=== PATIENT | female | born 1985 | race Caucasian/White ===

== ENCOUNTER 2018-05-16 16:10 | Emergency (ER) | payer MEDICAID ==
[2018-05-16 17:26] LABS: ADD UMIC NO; UR ASCORBIC ACID NEGATIVE (NEGATIVE); UR BILIRUBIN (Dip) NEGATIVE (NEGATIVE); UR BLOOD (Dip) NEGATIVE (NEGATIVE); UR CLARITY SLIGHTLY CLOUDY (CLEAR); UR COLOR YELLOW (YELLOW); UR GLUCOSE (Dip) NEGATIVE (NEGATIVE); UR KETONES (Dip) NEGATIVE (NEGATIVE); UR LEUKOCYTE ESTERASE (Dip) NEGATIVE Leu/ul (NEGATIVE); UR NITRITE (Dip) NEGATIVE (NEGATIVE); UR RBC 1 /HPF (0-5); UR SPECIFIC GRAVITY (Dip) 1.006 (1.003-1.030); UR SQUAMOUS EPITHELIAL CELL MODERATE /HPF (FEW); UR TOTAL PROTEIN (Dip) NEGATIVE (NEGATIVE); UR UROBILINOGEN (Dip) NEGATIVE (NEGATIVE); UR WBC 2 /HPF (0-5)
== END 2018-05-16 18:07 | disposition home or self-care (01) ==
LOC: FTE 16:10
DX: O26.891 Other specified pregnancy related conditions, first trimester (principal); R10.2 Pelvic and perineal pain; Z3A.12 12 weeks gestation of pregnancy
CPT/HCPCS: 76801; 81001; 81003; 87591; 99284-25

== ENCOUNTER 2018-11-26 05:30 | Inpatient (IN) | payer MEDICAID ==
[2018-11-26] MEDS ORDERED: OXYTOCIN 30 UNITS/LR 500 ML IV ×2 (06:00→09:30)
[2018-11-26] MEDS ORDERED: METHYLERGONOVINE 0.2 MG INJ IM ×2 (06:00→09:30)
[2018-11-26] MEDS ORDERED: CEFAZOLIN 2 GM/50 ML (PMX) 50 ML IVPB (06:00)
[2018-11-26] MEDS ORDERED: CARBOPROST 250 MCG INJ IM ×2 (06:00→09:30)
[2018-11-26] MEDS ORDERED: MISOPROSTOL 200 MCG TAB PR ×2 (06:00→09:30)
[2018-11-26] MEDS: LACTATED RINGER'S 1,000 ML IV ×3 (06:29→22:14)
[2018-11-26] MEDS ORDERED: OXYTOCIN 30 UNITS/LR 500 ML BAG IV (07:00)
[2018-11-26] MEDS ORDERED: EPHEDrine SULFATE 50 MG/5 ML SYG (07:00)
[2018-11-26 07:01] LABS: ADD MAN DIFF? NO
[2018-11-26 07:02] LABS: BASOPHILS % 0.4 % (0.0-2.0); EOSINOPHILS # 0.2 10^3/ul (0.0-0.5); EOSINOPHILS % 2.3 % (0.0-7.0); HEMATOCRIT 35.4 % (37.0-47.0); LYMPHOCYTES # 1.7 10^3/ul (0.8-2.9); MEAN CORPUSCULAR HEMOGLOBIN 31.3 pg (29.0-33.0); MEAN CORPUSCULAR HGB CONC 33.9 g/dl (32.0-37.0); MEAN CORPUSCULAR VOLUME 92.4 fl (82.0-101.0); MEAN PLATELET VOLUME 11.7 fl (7.4-10.4); MONOCYTE # 0.6 10^3/ul (0.3-0.9); MONOCYTES % 7.4 % (0.0-11.0); NEUTROPHIL # 5.5 10^3/ul (1.6-7.5); NEUTROPHILS % 68.3 % (39.0-77.0); PLATELET COUNT 229 10^3/UL (140-415); RED BLOOD COUNT 3.83 10^6/ul (4.20-5.40); RED CELL DISTRIBUTION WIDTH 12.6 % (11.5-14.5)
[2018-11-26 07:22] LABS: INR 0.85; PROTIME 11.7 Sec (11.9-14.9); PT RATIO 0.9
[2018-11-26 07:23] LABS: PARTIAL THROMBOPLASTIN TIME 23.6 Sec (23.0-35.0)
[2018-11-26 07:56] LABS: HEPATITIS B SURFACE ANTIGEN NEGATIVE (NEGATIVE)
[2018-11-26] MEDS ORDERED: HYDROmorphONE 0.5 MG/0.5 ML SYG IV ×2 (08:30)
[2018-11-26] MEDS ORDERED: NALOXONE (0.4 MG/ML) INJ IV (08:30)
[2018-11-26] MEDS ORDERED: DIPHENHYDRAMINE 50 MG INJ IV (08:30)
[2018-11-26] MEDS ORDERED: KETOROLAC 30 MG INJ IV (08:30)
[2018-11-26] MEDS ORDERED: FENTAnyl 50 MCG/ML VIAL IV ×2 (08:30)
[2018-11-26] MEDS ORDERED: ONDANSETRON 4 MG INJ IV (08:30)
[2018-11-26] MEDS ORDERED: METOCLOPRAMIDE 10 MG INJ IV (08:30)
[2018-11-26] MEDS ORDERED: HYDROmorphONE 1 MG/5 ML IV SYRINGE IV ×3 (08:30)
[2018-11-26] MEDS ORDERED: morphine SULFATE/PF (10 MG/10 ML) INJ (08:46)
[2018-11-26] MEDS: OXYTOCIN 30 UNITS/LR 500 ML IV ×2 (09:03→10:33)
[2018-11-26] MEDS ORDERED: DEXTROSE 5%-LR 1,000 ML IV (09:03)
[2018-11-26] MEDS ORDERED: PHENYLephrine (100 MCG/ML) 10ML SYG (09:04)
[2018-11-26] MEDS ORDERED: METHYLERGONOVINE 0.2 MG TAB PO (09:30)
[2018-11-26] MEDS ORDERED: LANOLIN HPA 1 PKT TOP (09:30)
[2018-11-26] MEDS: ONDANSETRON 4 MG INJ IV (11:58)
[2018-11-26] MEDS: DIPHTH/TET/ACEL PERTUSS (ADULT) 0.5 ML VIAL IM* (13:08)
[2018-11-26] MEDS: KETOROLAC 30 MG INJ IV (13:26)
[2018-11-26] MEDS ORDERED: IBUPROFEN 800 MG TAB PO (14:00)
[2018-11-26 15:22] LABS: RAPID PLASMA REAGIN NONREACTIVE (NR)
[2018-11-26] MEDS: GUAIFENESIN 20 MG/ML 5ML CUP PO (17:01)
[2018-11-26] MEDS: SENNA/DOCUSATE NA (8.6MG/50MG) TAB PO (21:00)
[2018-11-27] MEDS: LACTATED RINGER'S 1,000 ML IV (05:50)
[2018-11-27 07:15] LABS: ADD MAN DIFF? NO
[2018-11-27 07:21] LABS: WHITE BLOOD COUNT 7.4 10^3/ul (4.8-10.8)
[2018-11-27 07:22] LABS: BASOPHILS % 0.4 % (0.0-2.0); EOSINOPHILS # 0.1 10^3/ul (0.0-0.5); EOSINOPHILS % 1.3 % (0.0-7.0); HEMATOCRIT 29.2 % (37.0-47.0); HEMOGLOBIN 9.9 g/dl (12.0-16.0); LYMPHOCYTES # 1.5 10^3/ul (0.8-2.9); LYMPHOCYTES % 20.5 % (15.0-51.0); MEAN CORPUSCULAR HEMOGLOBIN 31.4 pg (29.0-33.0); MEAN CORPUSCULAR HGB CONC 33.9 g/dl (32.0-37.0); MEAN CORPUSCULAR VOLUME 92.7 fl (82.0-101.0); MEAN PLATELET VOLUME 11.9 fl (7.4-10.4); MONOCYTE # 0.5 10^3/ul (0.3-0.9); MONOCYTES % 6.9 % (0.0-11.0); NEUTROPHIL # 5.2 10^3/ul (1.6-7.5); NEUTROPHILS % 70.4 % (39.0-77.0); PLATELET COUNT 199 10^3/UL (140-415); RED BLOOD COUNT 3.15 10^6/ul (4.20-5.40); RED CELL DISTRIBUTION WIDTH 12.8 % (11.5-14.5)
[2018-11-27] MEDS: KETOROLAC 30 MG INJ IV (07:47)
[2018-11-27] MEDS: SENNA/DOCUSATE NA (8.6MG/50MG) TAB PO ×2 (09:19→20:50)
[2018-11-27] MEDS: GUAIFENESIN 20 MG/ML 5ML CUP PO (13:16)
[2018-11-27] MEDS: IBUPROFEN 800 MG TAB PO ×2 (13:16→21:30)
[2018-11-27] MEDS: HYDROCODONE/APAP (5/325) TAB GTB ×2 (13:17→21:30)
[2018-11-27] MEDS: HYDROCODONE/APAP (5/325) TAB NGT (15:59)
[2018-11-27] MEDS: POLYSACCHARIDE IRON COMPLEX CAP PO (20:50)
[2018-11-27] MEDS ORDERED: DOCUSATE SODIUM 100 MG CAP PO (21:00)
[2018-11-28] MEDS: IBUPROFEN 800 MG TAB PO ×3 (05:43→22:04)
[2018-11-28] MEDS: HYDROCODONE/APAP (5/325) TAB GTB ×3 (05:43→22:04)
[2018-11-28] MEDS: POLYSACCHARIDE IRON COMPLEX CAP PO ×2 (08:40→21:25)
[2018-11-28] MEDS: SENNA/DOCUSATE NA (8.6MG/50MG) TAB PO ×2 (08:41→20:39)
[2018-11-28] MEDS: HYDROCODONE/APAP (5/325) TAB NGT (10:48)
[2018-11-28] MEDS: MAGNESIUM HYDROXIDE 30ML CUP PO (21:25)
[2018-11-29] MEDS: IBUPROFEN 800 MG TAB PO ×2 (05:47→13:42)
[2018-11-29] MEDS: HYDROCODONE/APAP (5/325) TAB GTB (05:47)
[2018-11-29] MEDS: SENNA/DOCUSATE NA (8.6MG/50MG) TAB PO (07:57)
[2018-11-29] MEDS ORDERED: MEASLES,MUMPS,RUBELLA VACCINE INJ SC* (09:00)
[2018-11-29] MEDS ORDERED: DIPHTH/TET/ACEL PERTUSS (ADULT) 0.5 ML VIAL IM* (09:00)
[2018-11-29] MEDS: POLYSACCHARIDE IRON COMPLEX CAP PO (09:37)
== END 2018-11-29 13:50 | disposition home or self-care (01) | DRG 785 ==
LOC: L-D 05:30 → PP1 13:01
PROVIDERS: Obstetrics & Gynecology
PROC: 10D00Z1 Extraction of Products of Conception, Low, Open Approach (ICD-10-PCS; principal; 2018-11-26 07:30)
PROC: 0UB70ZZ Excision of Bilateral Fallopian Tubes, Open Approach (ICD-10-PCS; 2018-11-26 07:30)
DX: O34.211 Maternal care for low transverse scar from previous cesarean delivery (principal); Z3A.39 39 weeks gestation of pregnancy; Z30.2 Encounter for sterilization; O90.81 Anemia of the puerperium; D64.9 Anemia, unspecified
CPT/HCPCS: 85025; 85610; 85730; 86592; 86850; 86900; 86901; 87340; 88302; 99464